=== PATIENT | female | born 1995 | race Caucasian/White ===

== ENCOUNTER 2017-03-22 00:30 | Emergency (ER) | payer BC ==
[~2017-03-22] VITALS: Ht 160 cm; Wt 107.8 kg
[2017-03-22 00:38] VITALS: TEMP 36.7; Ht 160 cm; Wt 107.8 kg
--- NOTE | 2017-03-22 00:56 | EMERGENCY ROOM VISIT NOTE ---
History Report prepared by Kasia: Ayde Martínez Under the Supervision of: Dr. Florinda Coronado D.O. First contact with patient: 00:40 Chief Complaint: ED VAG BLEEDING Stated Complaint: EXCESSIVE BLOOD OUT OF VAGINA History of Present Illness The patient is a 22 year old female who presents to the Emergency Room with complaints of heavy vaginal bleeding beginning about 8 hours ago. The patient reports her period started on Tuesday, seven days ago and just ended yesterday. She states her period was normal The patient states her period is typically 6-7 days in length. She notes that over the past 8 hours she had three episodes of "heavy vaginal bleeding with clots. The patient states she does not normally does not have heavy periods. The patient is on oral control. The patient states she skipped her period last month and started a new pack early. She states she has skips her period before and has never had a problem like this occur. She denies any abdominal pain, lightheadedness, or or cramping. The patient has never been before. She doesn't take any other medications besides her control. Source of History: patient Onset: 8 hours ago Position: other (vaginal) Quality: other (bleeding) Timing: other (episodes) Modifying Factors (Relieving): other (none) Associated Symptoms: No abdominal pain Review of Systems See HPI for pertinent positives & negatives. A total of 10 systems reviewed and were otherwise negative. Past Medical & Surgical Medical Problems: (1) No Known Active Medical Problems Family History Patient reports no known family medical history. Social History Smoking Status: Never Smoker Housing Status: lives with roommate Occupation Status: [employer] student Current/Historical Medications Scheduled Ethinyl Estrad/Norgestimate (Sprintec 28), 1 TAB PO DAILY Allergies Coded Allergies: No Known Allergies (Unverified , 03/22/17) Physical Exam Vital Signs Date Time Temp Pulse Resp B/P (MAP) Pulse Ox O2 Delivery O2 Flow Rate FiO2 03/22/17 03:08 93 20 138/96 98 03/22/17 01:44 91 16 139/97 98 Room Air 03/22/17 00:38 36.7 109 20 135/87 98 Room Air Physical Exam HEENT: Head - normocephalic and atraumatic Pupils are equal, round, and reactive to light. Extraocular eye muscles are intact, and sclera are anicteric. Nose - moist nasal mucosa without discharge. Mouth - moist buccal mucosa. Oropharynx is nonerythematous and there is no tonsillar exudate or edema noted. Neck: Supple; no JVD, nuchal rigidity, cervical lymphadenopathy. Heart: Regular rate and rhythm. There is a normal S1 and S2 with no murmurs, clicks, or gallops appreciated. Lungs: Clear to auscultation bilaterally with no wheezes, rales, or rhonchi. Abdomen: Soft, completely nontender, nondistended, with good bowel sounds. There are no palpable pulsatile masses or hepatosplenomegaly. There is no guarding, rigidity, or rebound noted. Extremities: No evidence of cyanosis, clubbing, or edema. There are easily palpable peripheral pulses. Skin: warm and dry with good turgor and no rashes. Pelvic: On speculum examination, the cervix appeared healthy and the cervical os was closed. There was a large clot within the vaginal canal. This was removed. There is only a small amount of blood coming from the cervical os. Medical Decision & Procedures ER Provider Diagnostic Interpretation: Radiology results as stated below per my review and the radiologist's interpretation: US PELVIC/ENDOVAG: Uterus and endometrium are unremarkable. Ovaries are unremarkable. No torsion or masses. No free fluid in the pelvis. Radiologist: Khadar Marsh Laboratory Results 03/22/17 00:55 Test 03/22/17 00:55 Red Blood Count 4.69 M/uL (4.2-5.4) Mean Corpuscular Volume 88.3 fL (80-100) Mean Corpuscular Hemoglobin 30.3 pg (25-34) Mean Corpuscular Hemoglobin Concent 34.3 g/dl (32-36) RDW Standard Deviation 42.9 fL (36.4-46.3) RDW Coefficient of Variation 13.3 % (11.5-14.5) Mean Platelet Volume 9.0 fL (7.4-10.4) Human Chorionic Gonadotropin, Qual NEG (NEG) Laboratory results per my review. ED Course 0044: Past medical records reviewed. The patient was evaluated in room B9. A complete history and physical exam was performed. Labs were drawn as above. 0141: Bedside pelvic exam was performed. The patient will go for pelvic ultrasound. 0252: I updated the patient on her test results. She is ready to go home. 0303: Upon reevaluation, she is resting comfortably. I discussed findings and results with her. She verbalized agreement of the treatment plan. The patient was discharged home. Medical Decision The patient is a 22 year old female who presents to the ED with vaginal bleeding. Differential diagnosis includes dysfunctional uterine bleeding, anemia , , ectopic . Lab results show: serum negative, stable H & H. This is a 22-year-old female patient who presents to the emergency department with heavy vaginal bleeding. Pelvic examination and ultrasound were unremarkable. testing was negative. H&H is stable. 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 She plans to do so at home. She was told to return in the emergency department if she had any further symptoms. Medication Reconcilliation Current Medication List: was personally reviewed by me Blood Pressure Screening Patient's blood pressure: Elevated blood pressure Blood pressure disposition: Elevated BP felt to be situational Impression Primary Impression: Dysfunctional uterine bleeding Scribe Attestation The scribe's documentation has been prepared under my direction and personally reviewed by me in its entirety. I confirm that the note above accurately reflects all work, treatment, procedures, and medical decision making performed by me. Departure Information Dispostion Home / Self-Care Referrals No Doctor, Assigned (PCP) Forms HOME CARE DOCUMENTATION FORM, IMPORTANT VISIT INFORMATION, WORK / SCHOOL INSTRUCTIONS Patient Instructions ED Bleed Irregular Vaginal, My [facility] [employer] Additional Instructions Rest. Avoid strenuous activity If heavy bleeding persists, follow up with acls specialist by Tuesday
[2017-03-22] MEDS ORDERED: SPR28 PO (01:14)
[2017-03-22 01:18] LABS: HEMATOCRIT 41.4 % (37-47); HEMOGLOBIN 14.2 g/dL (12.0-16.0); MEAN CELL VOLUME 88.3 fL (80-100); MEAN CORPUSCULAR HEMOGLOBIN 30.3 pg (25-34); MEAN CORPUSCULAR HGB CONC 34.3 g/dl (32-36); PLATELET COUNT 410 K/uL (130-400); RED CELL DISTRIBUTION WIDTH CV 13.3 % (11.5-14.5); RED CELL DISTRIBUTION WIDTH SD 42.9 fL (36.4-46.3); WHITE BLOOD COUNT 9.98 K/uL (4.8-10.8)
[2017-03-22 03:08] VITALS: BP 138/96; PULSE 93; O2SAT 98
--- NOTE | 2017-03-22 07:04 | DIAGNOSTIC IMAGING REPORT ---
PELVIC COMPLETE NON OB HISTORY: 22 years-old Female dysfunctional uterine bleeding acute vaginal bleeding COMPARISON: None available TECHNIQUE: Multiple real-time sonographic images of the deep pelvic structures were obtained transabdominally and transvaginally assessing grayscale appearance, color and spectral flow FINDINGS: TRANSABDOMINAL: Anteflexed uterus measures 6.3 x 2.5 x 3.5 cm. Endometrium measures 0.5 cm and is homogeneous. The right ovary measures 2.7 x 1.6 x 1.8 cm and is within normal limits without focal mass. Arterial inflow documented on the right. Left ovary measures 2.8 x 1.7 x 2.2 cm and is within normal limits with arterial inflow documented. TRANSVAGINAL: Anteflexed uterus measures 6.5] 2.5 x 3.1 cm. Endometrium measures 0.3 cm. No myometrial mass lesions. Endometrium is homogeneous. The right ovary measures 2.2 x 2.5 x 1.7 cm and is within normal limits with follicles noted. Arterial inflow documented on the right. The left ovary measures 2.7 x 1.4 x 1.8 cm and is also within normal limits with arterial inflow documented. No significant free pelvic fluid. IMPRESSION: 1. Unremarkable sonographic appearance of the bilateral ovaries without evidence of torsion. 2. Uterus and endometrium are also within normal limits. The above report was generated using voice recognition software. It may contain grammatical, syntax or spelling errors. Electronically signed by: Froylan Crandall M.D. 03/22/2017 7:03 AM Dictated Date/Time: 03/22/2017 7:01 AM
== END 2017-03-22 03:10 | disposition home or self-care (01) ==
LOC: C.EDB 00:32
DX: N93.8 Other specified abnormal uterine and vaginal bleeding (principal)